=== PATIENT | male | born 1945 | race Hispanic/Latino ===

== ENCOUNTER 2019-10-05 22:40 | Inpatient (IN) | payer OTHER ==
[~2019-10-05] VITALS: Ht 165.1 cm; Wt 72.3 kg
[2019-10-05 23:07] LABS: BASOPHILS % (AUTO) 0.3 % (0.0-5.0); HEMATOCRIT 55.4 % (42-54); LYMPHOCYTES % (AUTO) 4.3 % (21.0-51.0); MEAN CORPUSCULAR HEMOGLOBIN 30.2 pg (27.0-33.0); MEAN CORPUSCULAR HGB CONC 31.8 g/dL (32.0-36.0); NEUTROPHILS % (AUTO) 90.9 % (40.0-77.0); NUCLEATED RED BLOOD CELLS 0.4 % (0.0-0.19); PLATELET COUNT (AUTO) 131 K/uL (130-400); RED BLOOD CELL COUNT(AUTO) 5.83 MIL/uL (4.50-6.20); RED CELL DISTRIBUTION WIDTH 17.6 % (11.0-15.5); WHITE BLOOD COUNT (AUTO) 25.8 K/uL (4.8-10.8)
[2019-10-05 23:19] LABS: ABG BASE EXCESS -12.9 mmol/L (-2.0-3.0); ABG HCO3 12.6 mmol/L (21.0-28.0); ABG OXYGEN SATURATION 95.4 % (95.0-99.0); ABG PCO2 29 mmHg (35-48)
[2019-10-05 23:26] LABS: INR 1.29 (0.85-1.15); PARTIAL THROMBOPLASTIN TIME 23.4 SEC (26.3-35.5); PROTHROMBIN TIME 13.8 SEC (9.6-11.6)
[2019-10-05] MEDS ORDERED: LORAZEPAM 2 MG/ML 1 ML VIAL ONE (23:30)
[2019-10-05] MEDS ORDERED: CEFTRIAXONE SODIUM 1 GM ONE (23:30)
[2019-10-05 23:41] LABS: PLATELET MORPHOLOGY PLT CLUMPS PRESENT
[2019-10-05 23:53] LABS: ALBUMIN 2.6 g/dL (3.5-5.0); BILIRUBIN,TOTAL 0.6 mg/dL (0.2-1.0); CREATININE 3.4 mg/dL (0.5-1.5); TOTAL PROTEIN, SERUM 7.1 g/dL (6.0-8.3)
[2019-10-06 00:19] LABS: POTASSIUM 6.5 mmol/L (3.5-5.1)
[2019-10-06 00:20] LABS: TROPONIN I 1.08 ng/mL (0.00-0.06)
[2019-10-06] MEDS ORDERED: CALCIUM GLUCONATE 1 GM/10 ML VIAL IV ONE (00:33)
[2019-10-06] MEDS ORDERED: INSULIN HUMULIN R 100 UNIT/ML 3ML ONE ×2 (00:36→21:42)
[2019-10-06] MEDS ORDERED: SODIUM CHLORIDE 0.9% 1000ML 1,000 ML IV SCH ×3 (00:50→02:15)
[2019-10-06] MEDS ORDERED: DEXTROSE 5 %-0.45 % NACL 1,000 ML IV PRN (00:50)
[2019-10-06 01:00] LABS: MAGNESIUM 3.9 mg/dL (1.80-2.40); PHOSPHORUS 9.4 mg/dL (2.5-4.9)
[2019-10-06] MEDS ORDERED: ERGOCALCIFEROL (VITAMIN D2) 50,000 UNIT CAPSULE PO ONE (01:00)
[2019-10-06] MEDS: INSULIN HUMULIN R 100 UNIT/ML 3ML IV SCH (01:00)
[2019-10-06] MEDS ORDERED: POTASSIUM CHLORIDE 10MEQ/100ML 100 ML IV PRN (01:00)
[2019-10-06] MEDS ORDERED: ONDANSETRON HCL 4 MG/2 ML VIAL IV PRN (01:15)
[2019-10-06] MEDS: ASPIRIN 300 MG SUPPOSITORY PR SCH (01:15)
[2019-10-06] MEDS ORDERED: NITROGLYCERIN 0.4 MG SL TAB SL PRN (01:15)
[2019-10-06] MEDS ORDERED: DIPHENHYDRAMINE HCL 25 MG CAPSULE PO PRN (01:15)
[2019-10-06] MEDS ORDERED: ALBUTEROL INHALER 90MCG/INH IH PRN (01:15)
[2019-10-06] MEDS ORDERED: ACETAMINOPHEN 325 MG TAB PO PRN ×2 (01:15)
[2019-10-06] MEDS: ALBUTEROL INHALER 90MCG/INH IH SCH ×6 (01:15→21:15)
[2019-10-06 01:52] LABS: CRP QUANTITATIVE 25.4 mg/L (0.00-9.0); MAGNESIUM 3.4 mg/dL (1.80-2.40)
[2019-10-06 02:03] LABS: TROPONIN I 1.16 ng/mL (0.00-0.06)
[2019-10-06] MEDS ORDERED: SODIUM CHLORIDE 0.9% 1000ML 1,000 ML IV ONE ×2 (02:05→06:50)
[2019-10-06] MEDS ORDERED: HEPARIN 25000 UNITS/250 ML D5W 250 ML IV SCH (02:45)
[2019-10-06] MEDS ORDERED: HEPARIN SODIUM 5000UNIT/ML 1ML VIAL ONE (02:48)
[2019-10-06] MEDS ORDERED: ASPIRIN 300 MG SUPPOSITORY PR ONE (02:48)
[2019-10-06] MEDS ORDERED: HEPARIN 25000 UNITS/250 ML D5W 250 ML IV ONE (02:49)
[2019-10-06 03:32] LABS: ABG BASE EXCESS -13.6 mmol/L (-2.0-3.0); ABG HCO3 14.3 mmol/L (21.0-28.0); ABG OXYGEN SATURATION 92.2 % (95.0-99.0); ABG PCO2 40 mmHg (35-48)
[2019-10-06] MEDS: SODIUM BICARB 8.4% 50ML SYRINGE IVP SCH (03:45)
[2019-10-06 04:04] LABS: MEAN CORPUSCULAR HEMOGLOBIN 30.1 pg (27.0-33.0); MEAN CORPUSCULAR HGB CONC 31.5 g/dL (32.0-36.0); MEAN CORPUSCULAR VOLUME 95.6 fL (79-99); NUCLEATED RED BLOOD CELLS 0.2 % (0.0-0.19); PLATELET COUNT (AUTO) 111 K/uL (130-400); RED BLOOD CELL COUNT(AUTO) 5.02 MIL/uL (4.50-6.20); RED CELL DISTRIBUTION WIDTH 16.6 % (11.0-15.5); WHITE BLOOD COUNT (AUTO) 21.4 K/uL (4.8-10.8)
[2019-10-06] MEDS ORDERED: SODIUM BICARB 50MEQ 50ML VIAL ONE ×2 (04:09→15:31)
[2019-10-06 04:42] LABS: INR 1.48 (0.85-1.15); PROTHROMBIN TIME 15.7 SEC (9.6-11.6)
[2019-10-06 04:50] LABS: BAND NEUTROPHILS % (MANUAL) 3 % (0-2); MAN.DIFF COMMENT-IMPRESSION MANUAL DIFFERENTIAL; MONOCYTES % (MANUAL) 1 % (2-9); SEGMENTED NEUTROPHILS % 96 % (40-70)
[2019-10-06 06:11] LABS: PARTIAL THROMBOPLASTIN TIME > 120.0 SEC (26.3-35.5)
[2019-10-06] MEDS ORDERED: PROPOFOL 1000 MG/100 ML 100 ML IV ONE ×2 (07:55→21:40)
[2019-10-06 08:45] LABS: CREATININE 2.7 mg/dL (0.5-1.5); MAGNESIUM 3.3 mg/dL (1.80-2.40); POTASSIUM 5.3 mmol/L (3.5-5.1)
[2019-10-06 08:53] LABS: TROPONIN I 1.21 ng/mL (0.00-0.06)
[2019-10-06 08:57] LABS: ABG BASE EXCESS -12.3 mmol/L (-2.0-3.0); ABG HCO3 17.3 mmol/L (21.0-28.0); ABG OXYGEN SATURATION 99.3 % (95.0-99.0); ABG PCO2 54 mmHg (35-48)
[2019-10-06] MEDS: METHYLPREDNISOLONE SOD SUCC 40MG/ML 1ML IVP SCH ×3 (09:00→21:00)
[2019-10-06] MEDS ORDERED: ENOXAPARIN SODIUM 40 MG/0.4 ML SYRINGE SQ SCH (09:00)
[2019-10-06] MEDS: ASCORBIC ACID 500 MG TAB PO SCH (09:00)
[2019-10-06] MEDS: FAMOTIDINE/PF 20 MG/2 ML VIAL IV SCH (09:00)
[2019-10-06] MEDS ORDERED: HEPARIN SODIUM 5000UNIT/ML 1ML VIAL SQ SCH (09:00)
[2019-10-06] MEDS: ZINC SULFATE 220 CAPSULE PO SCH (09:00)
[2019-10-06 09:05] LABS: ABG BASE EXCESS -12.8 mmol/L (-2.0-3.0); ABG HCO3 16.7 mmol/L (21.0-28.0); ABG OXYGEN SATURATION 98.8 % (95.0-99.0); ABG PCO2 52 mmHg (35-48)
[2019-10-06] MEDS ORDERED: DEXTROSE 5 %-0.45 % NACL 1,000 ML IV ONE (09:16)
[2019-10-06 09:29] LABS: APPEARANCE,URINE Cloudy (CLEAR); BILIRUBIN,URINE Negative (NEGATIVE); COLOR,URINE Yellow (YELLOW); GLUCOSE, URINE (UA) >=1000 mg/dL (NEGATIVE); KETONES,URINE Negative (NEGATIVE); LEUKOCYTE ESTERASE ,URINE Negative (NEGATIVE); NITRATE,URINE Negative (NEGATIVE); OCCULT BLOOD,URINE Small (NEGATIVE); PROTEIN,URINE Trace mg/dL (NEGATIVE); UROBILINOGEN,URINE 0.2 mg/dL (0.2-1.0)
[2019-10-06] MEDS ORDERED: FENTANYL CITRATE PF 50 MCG/1 ML 2ML VIAL ONE (09:59)
[2019-10-06] MEDS ORDERED: DEXTROSE 5%-WATER 1,000 ML IV SCH (10:00)
[2019-10-06] MEDS ORDERED: MIDAZOLAM HCL 1 MG/ML 2ML VIAL ONE (10:01)
[2019-10-06 10:05] LABS: BACTERIA,URINE Few /HPF (None Seen); WBC,URINE None Seen /HPF (0-1)
[2019-10-06 10:06] LABS: SQUAMOUS EPITHELIAL CELL,UR 0-2 /HPF (0-2); URIC ACID CRYSTALS,URINE Few /LPF (None Seen)
[2019-10-06] MEDS: ZOSYN 3.375GM+NS 50ML 50 ML IV SCH ×2 (10:15→21:00)
[2019-10-06] MEDS: ENOXAPARIN SODIUM 80 MG/0.8 ML SQ SCH (11:30)
[2019-10-06] MEDS ORDERED: VECURONIUM BROMIDE 10 MG ML IV SCH (13:45)
[2019-10-06] MEDS ORDERED: NOREPINEPHRINE 4MG/NS 250ML 250 ML IV ONE (14:45)
[2019-10-06 14:46] LABS: ABG BASE EXCESS -10.6 mmol/L (-2.0-3.0); ABG HCO3 20.4 mmol/L (21.0-28.0); ABG OXYGEN SATURATION 93.8 % (95.0-99.0); ABG PCO2 68 mmHg (35-48)
[2019-10-06] MEDS ORDERED: DEXTROSE 5%-WATER 1,000 ML IV ONE (15:32)
[2019-10-06 15:42] LABS: CREATININE 2.8 mg/dL (0.5-1.5); MAGNESIUM 3.2 mg/dL (1.80-2.40)
[2019-10-06] MEDS ORDERED: SODIUM BICARB 8.4% 50ML SYRING 0 MEQ in DEXTROSE 5%-WATER 1,000 ML IV SCH (15:45)
[2019-10-06] MEDS ORDERED: SODIUM BICARB 8.4% 50ML SYRINGE IVP SCH (15:45)
[2019-10-06 15:47] LABS: POTASSIUM 6.5 mmol/L (3.5-5.1)
[2019-10-06 15:48] LABS: TROPONIN I 1.25 ng/mL (0.00-0.06)
[2019-10-06] MEDS ORDERED: SODIUM BICARB 8.4% 50ML SYRING 150 MEQ in DEXTROSE 5%-WATER 1,000 ML IV SCH (16:00)
[2019-10-06] MEDS ORDERED: DEXTROSE 50%-WATER 50 ML DISP.SYRIN IV ONE (16:01)
[2019-10-06 16:19] LABS: ABG BASE EXCESS -7.4 mmol/L (-2.0-3.0); ABG HCO3 22.7 mmol/L (21.0-28.0); ABG OXYGEN SATURATION 93.1 % (95.0-99.0); ABG PCO2 68 mmHg (35-48)
--- NOTE | 2019-10-06 17:30 | NUR ---
CALL TO DAUGHTER GULSHAN FOR DC PLANNING BY BRO WYLIE, MAITE ADVISED TO CALL BACK AT 1500, IN A MEETING CALL TO GULSHAN THOMSON, STATES PATIENT LIVES WITH HER SISTER NATHAN, HE IS INDEPENDENT, DRIVES, DOES NOT OWN ANY DME, NO BP CUFF OR GLUCOMETER OR SHOWER CHAIR- COMPLETELY SELF CARE AND FOLLOWS REGULARLY WITH HIS PCPC , LAST APPOINTMENT 3 WEEKS AGO. KENDELL EVANS TO PROVIDE TRANSPORT ON DISCHARGE CM TO FOLLOW, PATIENT CONDITION GRIM Addendum: 10/06/19 at 2030 by ODELL SORENSON RN CM Amended: Links added.
[2019-10-06 17:43] LABS: ABG BASE EXCESS -5.2 mmol/L (-2.0-3.0); ABG HCO3 23.2 mmol/L (21.0-28.0); ABG OXYGEN SATURATION 97.3 % (95.0-99.0); ABG PCO2 58 mmHg (35-48)
[2019-10-06] MEDS ORDERED: ZOSYN 3.375GM+NS 50ML 50 ML IV ONE (17:46)
[2019-10-06] MEDS: LINEZOLID 600 MG/ISO-OSM 300 ML IV SCH (18:00)
[2019-10-06] MEDS ORDERED: FUROSEMIDE 10 MG/ML 2ML VIAL ONE (18:24)
[2019-10-06] MEDS ORDERED: FUROSEMIDE 10 MG/ML 4ML VIAL ONE (18:25)
[2019-10-06 18:45] LABS: INR 1.12 (0.85-1.15); PARTIAL THROMBOPLASTIN TIME 23.5 SEC (26.3-35.5)
[2019-10-06 19:10] LABS: TROPONIN I 1.07 ng/mL (0.00-0.06)
[2019-10-06] MEDS ORDERED: SODIUM POLYSTYRENE SULFONATE 15 GM/60 ML ML PO SCH (19:30)
[2019-10-06 21:23] LABS: ABG BASE EXCESS -3.2 mmol/L (-2.0-3.0); ABG HCO3 24.3 mmol/L (21.0-28.0); ABG OXYGEN SATURATION 97.7 % (95.0-99.0); ABG PCO2 53 mmHg (35-48)
[2019-10-06 21:26] LABS: ABG BASE EXCESS -4.8 mmol/L (-2.0-3.0); ABG HCO3 21.4 mmol/L (21.0-28.0); ABG OXYGEN SATURATION 98.4 % (95.0-99.0); ABG PCO2 44 mmHg (35-48)
[2019-10-06] MEDS ORDERED: SODIUM CHLORIDE 0.9% 100 ML IV ONE (21:41)
[2019-10-06] MEDS ORDERED: SODIUM CHLORIDE 0.9% IVP SCH (21:45)
[2019-10-06] MEDS ORDERED: GLUCAGON 1MG KIT 1 MG ML IM PRN (21:45)
[2019-10-06] MEDS ORDERED: INSULIN IV SS1 SQ PRN ×2 (21:45)
[2019-10-06] MEDS ORDERED: NOREPINEPHRINE 4MG/NS 250ML 250 ML IV SCH (21:45)
[2019-10-06] MEDS ORDERED: INSULIN LISPRO IVP SCH (21:45)
[2019-10-06] MEDS ORDERED: FUROSEMIDE 10 MG/ML 4ML VIAL IV SCH (22:00)
[2019-10-07] VITALS (14 sets, daily range): BP systolic 102–137; BP diastolic 52–74
[2019-10-07] MEDS ORDERED: ZOSYN 3.375GM+NS 50ML 50 ML IV ONE ×2 (00:31→07:58)
[2019-10-07] MEDS ORDERED: FAMOTIDINE/PF 20 MG/2 ML VIAL IV ONE ×2 (00:31→07:58)
[2019-10-07] MEDS ORDERED: METHYLPREDNISOLONE SOD SUCC 40MG/ML 1ML ONE ×2 (00:32→07:58)
[2019-10-07] MEDS: INSULIN HUMULIN R 100 UNIT/ML 3ML IV SCH (01:00)
[2019-10-07 01:03] LABS: CREATININE 3.2 mg/dL (0.5-1.5); POTASSIUM 5.4 mmol/L (3.5-5.1)
[2019-10-07] MEDS: ASPIRIN 300 MG SUPPOSITORY PR SCH (01:15)
[2019-10-07] MEDS: ALBUTEROL INHALER 90MCG/INH IH SCH ×6 (01:15→21:15)
[2019-10-07] MEDS ORDERED: NOREPINEPHRINE 4MG/NS 250ML 250 ML IV ONE ×2 (01:46→08:52)
[2019-10-07 01:49] LABS: ABG BASE EXCESS -0.7 mmol/L (-2.0-3.0); ABG HCO3 25.1 mmol/L (21.0-28.0); ABG OXYGEN SATURATION 96.9 % (95.0-99.0); ABG PCO2 46 mmHg (35-48)
[2019-10-07] MEDS: SODIUM BICARB 8.4% 50ML SYRINGE IVP SCH (03:45)
[2019-10-07] MEDS ORDERED: PROPOFOL 1000 MG/100 ML 100 ML IV ONE (05:58)
[2019-10-07] MEDS: LINEZOLID 600 MG/ISO-OSM 300 ML IV SCH ×2 (06:00→18:24)
[2019-10-07 07:14] LABS: ABG BASE EXCESS 4.8 mmol/L (-2.0-3.0); ABG HCO3 30.9 mmol/L (21.0-28.0); ABG OXYGEN SATURATION 96.1 % (95.0-99.0); ABG PCO2 51 mmHg (35-48)
[2019-10-07 07:24] LABS: BASOPHILS % (AUTO) 0.2 % (0.0-5.0); EOSINOPHILS % (AUTO) 0.9 % (0.0-8.0); HEMATOCRIT 44.7 % (42-54); LYMPHOCYTES % (AUTO) 3.5 % (21.0-51.0); MEAN CORPUSCULAR HEMOGLOBIN 30.3 pg (27.0-33.0); MEAN CORPUSCULAR HGB CONC 31.5 g/dL (32.0-36.0); MEAN CORPUSCULAR VOLUME 96.1 fL (79-99); MONOCYTES % (AUTO) 1.7 % (3.0-13.0); NEUTROPHILS % (AUTO) 92.8 % (40.0-77.0); NUCLEATED RED BLOOD CELLS 0.6 % (0.0-0.19); PLATELET COUNT (AUTO) 108 K/uL (130-400); RED BLOOD CELL COUNT(AUTO) 4.65 MIL/uL (4.50-6.20); RED CELL DISTRIBUTION WIDTH 17.1 % (11.0-15.5)
[2019-10-07] MEDS ORDERED: ENOXAPARIN SODIUM 80 MG/0.8 ML SQ ONE (07:58)
[2019-10-07 08:06] LABS: ALBUMIN 1.7 g/dL (3.5-5.0); BILIRUBIN,TOTAL 0.5 mg/dL (0.2-1.0); CREATININE 3.1 mg/dL (0.5-1.5); MAGNESIUM 2.7 mg/dL (1.80-2.40); POTASSIUM 5.6 mmol/L (3.5-5.1); TOTAL PROTEIN, SERUM 5.3 g/dL (6.0-8.3)
[2019-10-07] MEDS: METHYLPREDNISOLONE SOD SUCC 40MG/ML 1ML IVP SCH ×3 (09:00→21:48)
[2019-10-07] MEDS: ZINC SULFATE 220 CAPSULE PO SCH (09:00)
[2019-10-07] MEDS: ENOXAPARIN SODIUM 80 MG/0.8 ML SQ SCH (09:00)
[2019-10-07] MEDS: ZOSYN 3.375GM+NS 50ML 50 ML IV SCH ×2 (09:00→21:48)
[2019-10-07] MEDS: ASCORBIC ACID 500 MG TAB PO SCH (09:00)
[2019-10-07] MEDS: FAMOTIDINE/PF 20 MG/2 ML VIAL IV SCH (09:00)
--- NOTE | 2019-10-07 10:41 | NUR ---
ATTEMPTED TO CALL PATIENT'S DAUGHTER CHACE AT [phone] TO DO ADMISSION HISTORY, NO ANSWER AND MAILBOX FULL. PATIENT'S NURSE CLYDE ARORA NOTIFIED.
[2019-10-07] MEDS: INSULIN HUMULIN R 100 UNIT/ML 3ML SQ SCH ×2 (13:20→18:25)
[2019-10-07 16:18] LABS: CREATININE 3.1 mg/dL (0.5-1.5)
--- NOTE | 2019-10-07 17:50 | NUR ---
INITIAL SW spoke with patient's daughter, Abbey Covarrubias, [phone]. Patient lives with daughter, Kelly Ferrer. Patient's spouse 2 weeks ago. Patient has no home services. DME: glucometer (no insulin), BPM. Patient is able to complete ADL's independently and drives. PCP is Dr. Scot Flores. Pharmacy is [facility] on [address] in [place]. DCP is home. Addendum: 10/07/19 at 1753 by GLORIA MILLS SS Amended: Links added.
[2019-10-07] MEDS: PROPOFOL 1000 MG/100 ML 100 ML IV SCH ×2 (18:26→22:39)
--- NOTE | 2019-10-07 20:30 | NUR ---
DR. SOFIA BLACK CALLED AND GIVEN RESULTS OF 2D ECHO AND RECOMMENDATIONS OF CARDIOLOGY OF HEPARIN DRIP. HE WAS GIVEN UPDATE ON VITAL SIGNS AND DRIPS. HE ASKED TO CALL DAUGHTER AND GIVE UPDATE THAT PT HAS A VERY POOR PROGNOSIS AND CHANCE OF SURVIVAL IS VERY LOW. HE ALSO ASKED IF FAMILY IS WILLING TO HAVE TPA ADMINISTERED TO PT. NEW ORDERS RECEIVED AND WILL BE CARRIED OUT.
[2019-10-07] MEDS ORDERED: FENTANYL CITRATE PF 0.05 MG/ML 1,000 MCG in SODIUM CHLORIDE 0.9% 100 ML IVPB SCH (20:45)
[2019-10-07] MEDS ORDERED: MIDAZOLAM 50MG-0.9% NS 50ML 50 ML BAG IV SCH (20:45)
--- NOTE | 2019-10-07 20:50 | NUR ---
DAUGHTER DAUGHTER GULSHAN THOMSON WAS CALLED AND GIVEN UPDATED PER DR. BLACK THAT PTS CHANCE OF SURVIVAL IS VERY LOW WITH OR WITHOUT TPA ADMINISTRATION. SHE WAS ALSO ASKED ABOUT ADMINISTRATION OF TPA AND SHE AGREED. SHE DENIED THAT PT HAD ANY RECENT SURGERY, FALLS OR TRAUMA, NO HISTORY OF CANCER, NO HISTORY OF GI BLEEDING OR ANY OTHER TYPE OF BLEEDING RECENT OR IN PAST. SHE WAS MADE AWARE THAT WITH TPA THERE IS A HEAD BLEED OR BLEEDING FROM ANY OTHER AREAS. SHE VOICED UNDERSTANDING AND GAVE CONSENT FOR TPA ADMINISTRATION.
[2019-10-07] MEDS ORDERED: CEFTRIAXONE SODIUM 1 GM IV SCH (21:00)
[2019-10-07] MEDS ORDERED: AZITHROMYCIN 500MG+NS 250ML 250 ML IV SCH (21:00)
--- NOTE | 2019-10-07 21:05 | NUR ---
DR. SOFIA BLACK NOTIFIED THAT DAUGHTER AGREES WITH TPA. NEW ORDERS RECEIVED FOR TPA TO BE ADMINISTERED TOMORROW DUE TO LOVENOX GIVEN EARLIER AND CHANCE OF BLEEDING WOULD BE INCREASED. ORDERS TO START HEPARIN DRIP RECEIVED PT PENDING PICC LINE PLACEMENT.
[2019-10-07 21:34] LABS: INR 1.03 (0.85-1.15); PARTIAL THROMBOPLASTIN TIME 23.6 SEC (26.3-35.5); PROTHROMBIN TIME 11.1 SEC (9.6-11.6)
[2019-10-07] MEDS: INSULIN GLARGINE 100 UNITS/ML 10 ML VIAL SQ SCH (21:47)
--- NOTE | 2019-10-07 23:00 | NUR ---
PICC LINE PICC LINE NURSE GLORIA AT BEDSIDE FOR PLACEMENT.
[2019-10-07] MEDS: MIDAZOLAM 50MG-0.9% NS 50ML 50 ML IV SCH (23:07)
[2019-10-07] MEDS: FENTANYL 2500MCG+NS 250ML 250 ML IV SCH (23:08)
--- NOTE | 2019-10-07 23:49 | NUR ---
6 FR 3 LUMEN PICC INSERTED TO LEFT BRACHIAL VEIN, USING ASEPTIC TECHNIQUE. (+) VPS INDICATES "PICC TIP IN LOWER 1/3 OF SVC OR AT CAVOATRIAL JUNCTION AND OK TO USE PER PROTOCOL.
[2019-10-08] VITALS (35 sets, daily range): BP systolic 112–157; BP diastolic 31–74
[2019-10-08] MEDS: HEPARIN 25000 UNITS/250 ML D5W 250 ML IV SCH ×2 (00:08→20:36)
--- NOTE | 2019-10-08 00:10 | NUR ---
HEPARIN DRIP HEPARIN DRIP STARTED AT THIS TIME PER PROTOCOL
[2019-10-08] MEDS ORDERED: HEPARIN SODIUM 5000UNIT/ML 1ML VIAL ONE (00:18)
[2019-10-08] MEDS: INSULIN HUMULIN R 100 UNIT/ML 3ML SQ SCH ×5 (00:37→23:29)
[2019-10-08] MEDS: ALBUTEROL INHALER 90MCG/INH IH SCH ×6 (00:44→21:15)
[2019-10-08] MEDS: ASPIRIN 300 MG SUPPOSITORY PR SCH (01:15)
[2019-10-08] MEDS: SODIUM BICARB 8.4% 50ML SYRINGE IVP SCH (01:41)
[2019-10-08] MEDS: NOREPINEPHRINE 4MG/NS 250ML 250 ML IV SCH (02:28)
[2019-10-08] MEDS: MIDAZOLAM 50MG-0.9% NS 50ML 50 ML IV SCH ×3 (04:36→20:08)
[2019-10-08 04:44] LABS: BASOPHILS % (AUTO) 0.1 % (0.0-5.0); HEMATOCRIT 44.3 % (42-54); LYMPHOCYTES % (AUTO) 3.8 % (21.0-51.0); MEAN CORPUSCULAR HEMOGLOBIN 29.8 pg (27.0-33.0); MEAN CORPUSCULAR HGB CONC 30.7 g/dL (32.0-36.0); MEAN CORPUSCULAR VOLUME 96.9 fL (79-99); MONOCYTES % (AUTO) 1.6 % (3.0-13.0); NEUTROPHILS % (AUTO) 93.3 % (40.0-77.0); NUCLEATED RED BLOOD CELLS 0.4 % (0.0-0.19); PLATELET COUNT (AUTO) 91 K/uL (130-400); RED BLOOD CELL COUNT(AUTO) 4.57 MIL/uL (4.50-6.20); WHITE BLOOD COUNT (AUTO) 16.4 K/uL (4.8-10.8)
[2019-10-08 05:20] LABS: ABG BASE EXCESS 1.1 mmol/L (-2.0-3.0); ABG HCO3 25.4 mmol/L (21.0-28.0); ABG OXYGEN SATURATION 89.5 % (95.0-99.0); ABG PCO2 39 mmHg (35-48)
[2019-10-08] MEDS: LINEZOLID 600 MG/ISO-OSM 300 ML IV SCH ×2 (05:26→16:36)
[2019-10-08 06:04] LABS: ALBUMIN 1.5 g/dL (3.5-5.0); BILIRUBIN,TOTAL 0.5 mg/dL (0.2-1.0); CREATININE 3.4 mg/dL (0.5-1.5); TOTAL PROTEIN, SERUM 5.6 g/dL (6.0-8.3)
[2019-10-08 07:41] LABS: PROTHROMBIN TIME 11.8 SEC (9.6-11.6)
[2019-10-08 08:06] LABS: PARTIAL THROMBOPLASTIN TIME > 120.0 SEC (26.3-35.5)
[2019-10-08] MEDS: METHYLPREDNISOLONE SOD SUCC 40MG/ML 1ML IVP SCH ×3 (08:47→19:59)
[2019-10-08] MEDS: FAMOTIDINE/PF 20 MG/2 ML VIAL IV SCH (08:47)
[2019-10-08] MEDS: ZOSYN 3.375GM+NS 50ML 50 ML IV SCH ×2 (08:47→20:11)
[2019-10-08] MEDS: ASCORBIC ACID 500 MG TAB PO SCH (08:49)
[2019-10-08] MEDS: ZINC SULFATE 220 CAPSULE PO SCH (08:49)
[2019-10-08] MEDS: ENOXAPARIN SODIUM 80 MG/0.8 ML SQ SCH (09:00)
[2019-10-08 12:57] LABS: INR 1.03 (0.85-1.15); PARTIAL THROMBOPLASTIN TIME 64.1 SEC (26.3-35.5); PROTHROMBIN TIME 11.1 SEC (9.6-11.6)
[2019-10-08 19:23] LABS: INR 0.99 (0.85-1.15); PROTHROMBIN TIME 10.7 SEC (9.6-11.6)
[2019-10-08] MEDS: INSULIN GLARGINE 100 UNITS/ML 10 ML VIAL SQ SCH (20:00)
[2019-10-08] MEDS: FENTANYL 2500MCG+NS 250ML 250 ML IV SCH (20:08)
[2019-10-09] VITALS (24 sets, daily range): BP systolic 114–153; BP diastolic 43–63
[2019-10-09] MEDS: ASPIRIN 300 MG SUPPOSITORY PR SCH ×2 (01:12→21:08)
[2019-10-09] MEDS: ALBUTEROL INHALER 90MCG/INH IH SCH ×4 (01:12→13:15)
[2019-10-09 04:03] LABS: BASOPHILS % (AUTO) 0.1 % (0.0-5.0); HEMATOCRIT 41.9 % (42-54); LYMPHOCYTES % (AUTO) 2.8 % (21.0-51.0); MEAN CORPUSCULAR HEMOGLOBIN 29.9 pg (27.0-33.0); MEAN CORPUSCULAR HGB CONC 30.8 g/dL (32.0-36.0); MONOCYTES % (AUTO) 1.7 % (3.0-13.0); NEUTROPHILS % (AUTO) 94.2 % (40.0-77.0); NUCLEATED RED BLOOD CELLS 0.1 % (0.0-0.19); PLATELET COUNT (AUTO) 92 K/uL (130-400); RED BLOOD CELL COUNT(AUTO) 4.32 MIL/uL (4.50-6.20); RED CELL DISTRIBUTION WIDTH 16.7 % (11.0-15.5); WHITE BLOOD COUNT (AUTO) 13.7 K/uL (4.8-10.8)
[2019-10-09 04:13] LABS: ABG BASE EXCESS 3.1 mmol/L (-2.0-3.0); ABG HCO3 26.9 mmol/L (21.0-28.0); ABG OXYGEN SATURATION 91.2 % (95.0-99.0); ABG PCO2 38 mmHg (35-48)
[2019-10-09] MEDS: LINEZOLID 600 MG/ISO-OSM 300 ML IV SCH ×2 (04:17→17:14)
[2019-10-09 04:19] LABS: INR 0.96 (0.85-1.15); PARTIAL THROMBOPLASTIN TIME 54.5 SEC (26.3-35.5); PROTHROMBIN TIME 10.4 SEC (9.6-11.6)
[2019-10-09 04:24] LABS: ALBUMIN 1.4 g/dL (3.5-5.0); BILIRUBIN,TOTAL 0.5 mg/dL (0.2-1.0); CREATININE 3.7 mg/dL (0.5-1.5); POTASSIUM 4.3 mmol/L (3.5-5.1); TOTAL PROTEIN, SERUM 5.7 g/dL (6.0-8.3)
[2019-10-09] MEDS: INSULIN HUMULIN R 100 UNIT/ML 3ML SQ SCH ×3 (05:49→17:16)
[2019-10-09 07:35] LABS: CRP QUANTITATIVE 163.4 mg/L (0.00-9.0)
[2019-10-09] MEDS: ENOXAPARIN SODIUM 80 MG/0.8 ML SQ SCH (08:20)
[2019-10-09] MEDS: ZOSYN 3.375GM+NS 50ML 50 ML IV SCH ×2 (08:20→21:07)
[2019-10-09] MEDS: METHYLPREDNISOLONE SOD SUCC 40MG/ML 1ML IVP SCH ×3 (08:20→21:07)
[2019-10-09] MEDS: FAMOTIDINE/PF 20 MG/2 ML VIAL IV SCH (08:20)
[2019-10-09] MEDS: ZINC SULFATE 220 CAPSULE PO SCH (08:20)
[2019-10-09] MEDS: ASCORBIC ACID 500 MG TAB PO SCH (09:37)
[2019-10-09] MEDS ORDERED: LIDOCAINE HCL 1% 20 ML VIAL ONE (09:46)
[2019-10-09] MEDS ORDERED: DEXTROSE 5%-WATER 1,000 ML IV ONE (10:42)
[2019-10-09] MEDS: DEXTROSE 5%-WATER 1,000 ML IV SCH (11:27)
--- NOTE | 2019-10-09 12:18 | NUR ---
RD NOTIFICATION - TUBE FEEDING RECOMMENDATIONS Recommend Vital AF 1.2 initiated at 15mls/hr for 5 hrs. Adv to goal as tolerated by 5ml Q5hrs to 50mls/hr. Recommend flushes 150ml Q4hrs. Attempt to fax to [facility] - No answer. Recommendations faxed to [facility], RN notified. NUTRITION NOTE: Pt positive for COVID-19, Septic shock, CAP, DKA. OGT in place. WBC 13.7, Na 156, Cr 3.7, GFR 17, BG 143, LDH 510, Alb 1.4. Vitamin C, Zinc supplementation in place. Recommend immune support tube feeding formula, Vital AF 1.2. RD to continue to monitor. Please notify as additional nutrition concerns arise. Thank you.
--- NOTE | 2019-10-09 12:30 | NUR ---
Dr. Sanz at bedside for right chest tube insertion. 14 fr chest tube inserted at bedside. pt tolerated well. Placed on-20 cm [id number] as ordered. Cxr completed and reviewed by .
[2019-10-09] MEDS: INSULIN NPH 100 UNIT/ML 3ML SQ SCH (17:14)
[2019-10-09] MEDS: FENTANYL 2500MCG+NS 250ML 250 ML IV SCH (18:56)
[2019-10-09] MEDS ORDERED: ROCURONIUM BROMIDE 10MG/1ML 5ML VL IV ONE (19:00)
[2019-10-09] MEDS: HEPARIN 25000 UNITS/250 ML D5W 250 ML IV SCH (21:40)
[2019-10-10] VITALS (24 sets, daily range): BP systolic 128–171; BP diastolic 47–79
[2019-10-10] MEDS: INSULIN HUMULIN R 100 UNIT/ML 3ML SQ SCH ×5 (00:49→23:43)
[2019-10-10] MEDS: DEXTROSE 5%-WATER 1,000 ML IV SCH ×2 (00:56→07:49)
[2019-10-10] MEDS: MIDAZOLAM 50MG-0.9% NS 50ML 50 ML IV SCH ×2 (00:57→07:48)
[2019-10-10 03:56] LABS: BASOPHILS % (AUTO) 0.1 % (0.0-5.0); HEMATOCRIT 37.2 % (42-54); LYMPHOCYTES % (AUTO) 3.3 % (21.0-51.0); MEAN CORPUSCULAR HEMOGLOBIN 29.8 pg (27.0-33.0); MEAN CORPUSCULAR HGB CONC 30.9 g/dL (32.0-36.0); MEAN CORPUSCULAR VOLUME 96.4 fL (79-99); MONOCYTES % (AUTO) 1.8 % (3.0-13.0); NUCLEATED RED BLOOD CELLS 0.2 % (0.0-0.19); PLATELET COUNT (AUTO) 83 K/uL (130-400); RED BLOOD CELL COUNT(AUTO) 3.86 MIL/uL (4.50-6.20); WHITE BLOOD COUNT (AUTO) 10.7 K/uL (4.8-10.8)
[2019-10-10 04:24] LABS: ALBUMIN 1.1 g/dL (3.5-5.0); BILIRUBIN,TOTAL 0.5 mg/dL (0.2-1.0); CREATININE 3.8 mg/dL (0.5-1.5); CRP QUANTITATIVE 174.3 mg/L (0.00-9.0); MAGNESIUM 3.3 mg/dL (1.80-2.40); PHOSPHORUS 7.3 mg/dL (2.5-4.9); POTASSIUM 4.2 mmol/L (3.5-5.1); TOTAL PROTEIN, SERUM 5.2 g/dL (6.0-8.3); URIC ACID 8.1 mg/dL (2.6-7.2)
[2019-10-10] MEDS: LINEZOLID 600 MG/ISO-OSM 300 ML IV SCH ×2 (06:36→17:04)
[2019-10-10] MEDS: METHYLPREDNISOLONE SOD SUCC 40MG/ML 1ML IVP SCH ×3 (07:48→21:51)
[2019-10-10] MEDS: ZINC SULFATE 220 CAPSULE PO SCH (07:48)
[2019-10-10] MEDS: FAMOTIDINE/PF 20 MG/2 ML VIAL IV SCH (07:48)
[2019-10-10] MEDS: ASCORBIC ACID 500 MG TAB PO SCH (07:48)
[2019-10-10] MEDS: ZOSYN 3.375GM+NS 50ML 50 ML IV SCH ×2 (07:49→21:51)
[2019-10-10] MEDS: INSULIN NPH 100 UNIT/ML 3ML SQ SCH ×2 (07:50→17:01)
[2019-10-10 08:51] LABS: ABG BASE EXCESS -1.5 mmol/L (-2.0-3.0); ABG HCO3 23.7 mmol/L (21.0-28.0); ABG OXYGEN SATURATION 96.6 % (95.0-99.0); ABG PCO2 42 mmHg (35-48)
--- NOTE | 2019-10-10 08:51 | NUR ---
CHART CHECK COMPLETED. Pt IS A 74 Y.O. ADMITTED SECONDARY TO SEPTIC SHOCK, CAP, DKA, PUI, ACUTE HYPOXIC RESPIRATORY FAILURE, ACUTE ENCEPHALOPATHY, KIDNEY FAILURE, AMS, RHABDOMYOLYSIS. Pt HAS A PAST MEDICAL HISTORY SIGNIFICANT FOR DM, HYPERTENSION. Pt CURRENTLY ON TUBE FEEDING. PLEASE REQUEST FORMAL SKILLED SPEECH THERAPY 24 HOURS S/P EXTUBATION. Addendum: 10/10/19 at [address] Amended: Links added.
[2019-10-10] MEDS: FENTANYL 2500MCG+NS 250ML 250 ML IV SCH (13:33)
[2019-10-10] MEDS: LACTULOSE 20 GM/30 ML UDCUP PO SCH (21:51)
[2019-10-10] MEDS: ASPIRIN 300 MG SUPPOSITORY PR SCH (23:44)
[2019-10-11] VITALS (22 sets, daily range): BP systolic 132–163; BP diastolic 41–71
[2019-10-11 03:02] LABS: ABG BASE EXCESS -3.1 mmol/L (-2.0-3.0); ABG HCO3 22.3 mmol/L (21.0-28.0); ABG OXYGEN SATURATION 92.7 % (95.0-99.0); ABG PCO2 42 mmHg (35-48)
[2019-10-11] MEDS: HEPARIN 25000 UNITS/250 ML D5W 250 ML IV SCH (04:07)
[2019-10-11] MEDS: INSULIN HUMULIN R 100 UNIT/ML 3ML SQ SCH ×3 (06:00→17:42)
[2019-10-11] MEDS: LINEZOLID 600 MG/ISO-OSM 300 ML IV SCH ×2 (06:10→17:43)
[2019-10-11] MEDS: MIDAZOLAM 50MG-0.9% NS 50ML 50 ML IV SCH ×2 (07:23→21:12)
[2019-10-11 07:29] LABS: HEMATOCRIT 40.5 % (42-54); MEAN CORPUSCULAR HEMOGLOBIN 29.3 pg (27.0-33.0); MEAN CORPUSCULAR HGB CONC 30.9 g/dL (32.0-36.0); MEAN CORPUSCULAR VOLUME 94.8 fL (79-99); NUCLEATED RED BLOOD CELLS 0.2 % (0.0-0.19); RED BLOOD CELL COUNT(AUTO) 4.27 MIL/uL (4.50-6.20); RED CELL DISTRIBUTION WIDTH 15.2 % (11.0-15.5); WHITE BLOOD COUNT (AUTO) 12.5 K/uL (4.8-10.8)
[2019-10-11 07:47] LABS: ALBUMIN 1.1 g/dL (3.5-5.0); BILIRUBIN,TOTAL 0.5 mg/dL (0.2-1.0); CREATININE 4.6 mg/dL (0.5-1.5); POTASSIUM 4.2 mmol/L (3.5-5.1); TOTAL PROTEIN, SERUM 5.6 g/dL (6.0-8.3)
[2019-10-11] MEDS: ZINC SULFATE 220 CAPSULE PO SCH (07:59)
[2019-10-11] MEDS: METHYLPREDNISOLONE SOD SUCC 40MG/ML 1ML IVP SCH ×2 (07:59→12:37)
[2019-10-11] MEDS: ASCORBIC ACID 500 MG TAB PO SCH (07:59)
[2019-10-11] MEDS: LACTULOSE 20 GM/30 ML UDCUP PO SCH ×2 (07:59→21:00)
[2019-10-11] MEDS: ZOSYN 3.375GM+NS 50ML 50 ML IV SCH ×2 (08:00→21:11)
[2019-10-11] MEDS: INSULIN NPH 100 UNIT/ML 3ML SQ SCH ×2 (08:00→17:42)
[2019-10-11] MEDS: DOCUSATE CALCIUM 240 MG CAP PO SCH (08:00)
[2019-10-11] MEDS: FAMOTIDINE/PF 20 MG/2 ML VIAL IV SCH (08:01)
[2019-10-11 08:09] LABS: PARTIAL THROMBOPLASTIN TIME 47.3 SEC (26.3-35.5)
[2019-10-11 08:25] LABS: CRP QUANTITATIVE 139.4 mg/L (0.00-9.0)
[2019-10-11] MEDS: FENTANYL 2500MCG+NS 250ML 250 ML IV SCH (14:20)
--- NOTE | 2019-10-11 16:26 | NUR ---
PT SEDATION WEANED OFF AT 1500, PT UNABLE TO OPEN EYES OR FOLLOW COMMANDS AT THIS TIME, NO SPONTANEOUS MOVEMENT NOTED, PT COUGHING OCCASIONALLY. LABORED BREATHING NOTED RR 38-39. PT PLACED BACK ON SEDATION. CONTINUE TO MONITOR PT.
[2019-10-11] MEDS: ASPIRIN 300 MG SUPPOSITORY PR SCH (21:13)
[2019-10-12] VITALS (23 sets, daily range): BP systolic 122–192; BP diastolic 49–76
[2019-10-12] MEDS: INSULIN HUMULIN R 100 UNIT/ML 3ML SQ SCH ×4 (00:47→17:46)
[2019-10-12 03:12] LABS: HEMATOCRIT 41.5 % (42-54); MEAN CORPUSCULAR HEMOGLOBIN 29.7 pg (27.0-33.0); MEAN CORPUSCULAR HGB CONC 31.6 g/dL (32.0-36.0); MEAN CORPUSCULAR VOLUME 94.1 fL (79-99); NUCLEATED RED BLOOD CELLS 0.2 % (0.0-0.19); RED BLOOD CELL COUNT(AUTO) 4.41 MIL/uL (4.50-6.20); RED CELL DISTRIBUTION WIDTH 15.6 % (11.0-15.5); WHITE BLOOD COUNT (AUTO) 12.6 K/uL (4.8-10.8)
[2019-10-12 03:28] LABS: ALBUMIN 1.1 g/dL (3.5-5.0); BILIRUBIN,TOTAL 0.5 mg/dL (0.2-1.0); CREATININE 4.5 mg/dL (0.5-1.5); CRP QUANTITATIVE 157.7 mg/L (0.00-9.0); POTASSIUM 4.1 mmol/L (3.5-5.1); TOTAL PROTEIN, SERUM 5.6 g/dL (6.0-8.3)
[2019-10-12 03:39] LABS: ABG BASE EXCESS -3.5 mmol/L (-2.0-3.0); ABG HCO3 21.1 mmol/L (21.0-28.0); ABG OXYGEN SATURATION 93.2 % (95.0-99.0); ABG PCO2 37 mmHg (35-48)
[2019-10-12] MEDS: LINEZOLID 600 MG/ISO-OSM 300 ML IV SCH ×2 (05:42→18:00)
[2019-10-12] MEDS: HEPARIN 25000 UNITS/250 ML D5W 250 ML IV SCH (06:45)
[2019-10-12] MEDS: INSULIN NPH 100 UNIT/ML 3ML SQ SCH ×2 (08:00→17:48)
[2019-10-12] MEDS: LACTULOSE 20 GM/30 ML UDCUP PO SCH ×2 (09:00→20:43)
[2019-10-12] MEDS: DOCUSATE CALCIUM 240 MG CAP PO SCH (09:00)
[2019-10-12] MEDS: ASCORBIC ACID 500 MG TAB PO SCH (09:00)
[2019-10-12] MEDS: METHYLPREDNISOLONE SOD SUCC 40MG/ML 1ML IVP SCH (09:20)
[2019-10-12] MEDS: ZOSYN 3.375GM+NS 50ML 50 ML IV SCH ×2 (09:20→20:43)
[2019-10-12] MEDS: FAMOTIDINE/PF 20 MG/2 ML VIAL IV SCH (09:20)
[2019-10-12] MEDS: ZINC SULFATE 220 CAPSULE PO SCH (09:20)
[2019-10-12] MEDS: MIDAZOLAM 50MG-0.9% NS 50ML 50 ML IV SCH ×2 (09:31→23:11)
[2019-10-12] MEDS: FENTANYL 2500MCG+NS 250ML 250 ML IV SCH (11:54)
[2019-10-12 22:29] LABS: BILIRUBIN,URINE MODERATE (NEGATIVE); GLUCOSE, URINE (UA) NEGATIVE (NEGATIVE); KETONES,URINE 5 mg/dL (NEGATIVE); LEUKOCYTE ESTERASE ,URINE MODERATE (NEGATIVE); NITRATE,URINE POSITIVE (NEGATIVE); OCCULT BLOOD,URINE LARGE (NEGATIVE); PH,URINE 6.5 (5.0-8.0); PROTEIN,URINE 100 mg/dL (NEGATIVE)
[2019-10-12 22:31] LABS: APPEARANCE,URINE TURBID (CLEAR); COLOR,URINE BROWN (YELLOW)
[2019-10-12 22:39] LABS: CHLORIDE,URINE RANDOM 34 mmol/L (110-250); CREATININE,URINE RANDOM 54 mg/dL (30-135); POTASSIUM,URINE RANDOM 29 mmol/L (25-125); SODIUM,URINE RANDOM 30 mmol/l (40-220)
[2019-10-12 22:49] LABS: RBC,URINE Full Field /HPF (0-1)
[2019-10-12 22:50] LABS: URIC ACID CRYSTALS,URINE Few /LPF (None Seen); YEAST,URINE BUDDING Moderate /HPF (None Seen)
[2019-10-12 22:51] LABS: AMORPHOUS SEDIMENT,UR Few /LPF (None Seen); BACTERIA,URINE Few /HPF (None Seen)
[2019-10-13] VITALS (23 sets, daily range): BP systolic 120–166; BP diastolic 35–69
[2019-10-13] MEDS: INSULIN HUMULIN R 100 UNIT/ML 3ML SQ SCH ×4 (00:47→18:03)
[2019-10-13] MEDS: ASPIRIN 300 MG SUPPOSITORY PR SCH (01:15)
[2019-10-13] MEDS: FENTANYL 2500MCG+NS 250ML 250 ML IV SCH ×2 (03:20→20:02)
[2019-10-13] MEDS: LINEZOLID 600 MG/ISO-OSM 300 ML IV SCH ×2 (07:27→17:28)
[2019-10-13] MEDS: LACTULOSE 20 GM/30 ML UDCUP PO SCH ×2 (08:22→20:22)
[2019-10-13] MEDS: ZOSYN 3.375GM+NS 50ML 50 ML IV SCH ×2 (08:22→20:21)
[2019-10-13] MEDS: DOCUSATE CALCIUM 240 MG CAP PO SCH (08:22)
[2019-10-13] MEDS: METHYLPREDNISOLONE SOD SUCC 40MG/ML 1ML IVP SCH (08:22)
[2019-10-13] MEDS: ZINC SULFATE 220 CAPSULE PO SCH (08:22)
[2019-10-13] MEDS: ASCORBIC ACID 500 MG TAB PO SCH (08:22)
[2019-10-13] MEDS: FAMOTIDINE/PF 20 MG/2 ML VIAL IV SCH (08:22)
[2019-10-13] MEDS: INSULIN NPH 100 UNIT/ML 3ML SQ SCH ×2 (09:19→18:02)
[2019-10-13 14:43] LABS: ABG BASE EXCESS -5.4 mmol/L (-2.0-3.0); ABG HCO3 20.6 mmol/L (21.0-28.0); ABG OXYGEN SATURATION 91.4 % (95.0-99.0); ABG PCO2 42 mmHg (35-48)
[2019-10-13] MEDS: HEPARIN 25000 UNITS/250 ML D5W 250 ML IV SCH (15:01)
[2019-10-13] MEDS: MIDAZOLAM 50MG-0.9% NS 50ML 50 ML IV SCH (17:27)
[2019-10-14] VITALS (32 sets, daily range): BP systolic 117–168; BP diastolic 21–76
[2019-10-14] MEDS: INSULIN HUMULIN R 100 UNIT/ML 3ML SQ SCH ×4 (02:02→17:32)
[2019-10-14] MEDS: MIDAZOLAM 50MG-0.9% NS 50ML 50 ML IV SCH ×2 (02:50→09:02)
[2019-10-14] MEDS: LINEZOLID 600 MG/ISO-OSM 300 ML IV SCH (05:35)
[2019-10-14 06:25] LABS: BASOPHILS % (AUTO) 0.2 % (0.0-5.0); EOSINOPHILS % (AUTO) 0.2 % (0.0-8.0); HEMATOCRIT 39.9 % (42-54); LYMPHOCYTES % (AUTO) 4.5 % (21.0-51.0); MEAN CORPUSCULAR HEMOGLOBIN 29.3 pg (27.0-33.0); MEAN CORPUSCULAR HGB CONC 31.1 g/dL (32.0-36.0); MEAN CORPUSCULAR VOLUME 94.3 fL (79-99); MONOCYTES % (AUTO) 1.7 % (3.0-13.0); NEUTROPHILS % (AUTO) 93.1 % (40.0-77.0); PLATELET COUNT (AUTO) 60 K/uL (130-400); RED BLOOD CELL COUNT(AUTO) 4.23 MIL/uL (4.50-6.20); WHITE BLOOD COUNT (AUTO) 10.5 K/uL (4.8-10.8)
[2019-10-14 06:40] LABS: PLATELET MORPHOLOGY COMMENT LARGE PLTS PRESENT
[2019-10-14 07:14] LABS: ALBUMIN 1.1 g/dL (3.5-5.0); BILIRUBIN,TOTAL 0.4 mg/dL (0.2-1.0); CREATININE 5.3 mg/dL (0.5-1.5); PHOSPHORUS 9.5 mg/dL (2.5-4.9); POTASSIUM 4.7 mmol/L (3.5-5.1); TOTAL PROTEIN, SERUM 5.8 g/dL (6.0-8.3)
[2019-10-14 07:26] LABS: ABG BASE EXCESS -4.7 mmol/L (-2.0-3.0); ABG HCO3 21.2 mmol/L (21.0-28.0); ABG OXYGEN SATURATION 93.1 % (95.0-99.0); ABG PCO2 42 mmHg (35-48)
[2019-10-14] MEDS: LACTULOSE 20 GM/30 ML UDCUP PO SCH ×2 (09:00→21:00)
[2019-10-14] MEDS: FAMOTIDINE/PF 20 MG/2 ML VIAL IV SCH (09:01)
[2019-10-14] MEDS: METHYLPREDNISOLONE SOD SUCC 40MG/ML 1ML IVP SCH (09:01)
[2019-10-14] MEDS: ZINC SULFATE 220 CAPSULE PO SCH (09:01)
[2019-10-14] MEDS: ASCORBIC ACID 500 MG TAB PO SCH (09:01)
[2019-10-14] MEDS: ZOSYN 3.375GM+NS 50ML 50 ML IV SCH (09:01)
[2019-10-14] MEDS: FENTANYL 2500MCG+NS 250ML 250 ML IV SCH (09:02)
[2019-10-14] MEDS: INSULIN NPH 100 UNIT/ML 3ML SQ SCH ×2 (09:05→17:33)
[2019-10-14] MEDS: DOCUSATE CALCIUM 240 MG CAP PO SCH (09:27)
[2019-10-14 13:20] LABS: BASOPHILS % (AUTO) 0.1 % (0.0-5.0); EOSINOPHILS % (AUTO) 3.2 % (0.0-8.0); HEMATOCRIT 46.4 % (42-54); LYMPHOCYTES % (AUTO) 4.2 % (21.0-51.0); MEAN CORPUSCULAR HEMOGLOBIN 29.6 pg (27.0-33.0); MEAN CORPUSCULAR HGB CONC 31.3 g/dL (32.0-36.0); MEAN CORPUSCULAR VOLUME 94.7 fL (79-99); MONOCYTES % (AUTO) 1.1 % (3.0-13.0); NEUTROPHILS % (AUTO) 90.8 % (40.0-77.0); PLATELET COUNT (AUTO) 54 K/uL (130-400); RED CELL DISTRIBUTION WIDTH 15.9 % (11.0-15.5); WHITE BLOOD COUNT (AUTO) 9.1 K/uL (4.8-10.8)
[2019-10-14] MEDS: HEPARIN 25000 UNITS/250 ML D5W 250 ML IV SCH (13:20)
[2019-10-14] MEDS ORDERED: PROPOFOL 1000 MG/100 ML IV PRN (13:30)
[2019-10-14] MEDS ORDERED: PHARMACY COMMUNICATION MISC SCH (13:30)
[2019-10-14 13:34] LABS: CREATININE 5.1 mg/dL (0.5-1.5); POTASSIUM 4.4 mmol/L (3.5-5.1)
[2019-10-14] MEDS ORDERED: CEFEPIME HCL 2 GM VIAL IVP SCH (14:15)
[2019-10-14] MEDS ORDERED: MIDAZOLAM HCL IV SCH (15:30)
[2019-10-14] MEDS ORDERED: WATER IV SCH (15:30)
[2019-10-14] MEDS ORDERED: DEXTROSE 5% IV SCH (15:30)
[2019-10-14] MEDS: PROPOFOL 1000 MG/100 ML 100 ML IV SCH (15:48)
[2019-10-14] MEDS: DEXMEDETOMIDINE HCL 400 MCG in SODIUM CHLORIDE 0.9% 100 ML IV SCH (15:49)
[2019-10-14] MEDS ORDERED: COMPOUND NARC IV MISC 1 EACH IVSOLN MISC PRN (16:30)
[2019-10-14 17:50] LABS: BAND NEUTROPHILS % (MANUAL) 2 % (0-2); LYMPHOCYTES % (MANUAL) 4 % (22-44); MONOCYTES % (MANUAL) 2 % (2-9); SEGMENTED NEUTROPHILS % 92 % (40-70)
[2019-10-14 17:52] LABS: MAN.DIFF COMMENT-IMPRESSION MANUAL DIFFERENTIAL
[2019-10-14 17:53] LABS: HEMATOCRIT 36.4 % (42-54); MEAN CORPUSCULAR HEMOGLOBIN 29.8 pg (27.0-33.0); MEAN CORPUSCULAR HGB CONC 31.3 g/dL (32.0-36.0); MEAN CORPUSCULAR VOLUME 95.3 fL (79-99); PLATELET COUNT (AUTO) 58 K/uL (130-400); RED BLOOD CELL COUNT(AUTO) 3.82 MIL/uL (4.50-6.20); RED CELL DISTRIBUTION WIDTH 15.8 % (11.0-15.5); WHITE BLOOD COUNT (AUTO) 9.4 K/uL (4.8-10.8)
[2019-10-15] VITALS (37 sets, daily range): BP systolic 105–171; BP diastolic 25–58
[2019-10-15] MEDS: FENTANYL CITRATE PF 0.05 MG/ML 2,500 MCG in DEXTROSE 5%-WATER 250 ML IVPB SCH ×2 (01:26→18:20)
[2019-10-15] MEDS: INSULIN HUMULIN R 100 UNIT/ML 3ML SQ SCH ×4 (01:33→18:19)
[2019-10-15] MEDS: DEXMEDETOMIDINE HCL 400 MCG in SODIUM CHLORIDE 0.9% 100 ML IV SCH (02:42)
[2019-10-15 05:38] LABS: BASOPHILS % (AUTO) 0.1 % (0.0-5.0); HEMATOCRIT 34.1 % (42-54); LYMPHOCYTES % (AUTO) 6.1 % (21.0-51.0); MEAN CORPUSCULAR HEMOGLOBIN 28.8 pg (27.0-33.0); MEAN CORPUSCULAR HGB CONC 30.5 g/dL (32.0-36.0); MEAN CORPUSCULAR VOLUME 94.5 fL (79-99); MONOCYTES % (AUTO) 1.5 % (3.0-13.0); NEUTROPHILS % (AUTO) 91.7 % (40.0-77.0); PLATELET COUNT (AUTO) 53 K/uL (130-400); RED BLOOD CELL COUNT(AUTO) 3.61 MIL/uL (4.50-6.20); RED CELL DISTRIBUTION WIDTH 15.7 % (11.0-15.5); WHITE BLOOD COUNT (AUTO) 8.4 K/uL (4.8-10.8)
[2019-10-15 05:59] LABS: ALBUMIN 0.9 g/dL (3.5-5.0); BILIRUBIN,TOTAL 0.3 mg/dL (0.2-1.0); CREATININE 5.9 mg/dL (0.5-1.5); CRP QUANTITATIVE 128.2 mg/L (0.00-9.0); POTASSIUM 5.1 mmol/L (3.5-5.1); TOTAL PROTEIN, SERUM 5.2 g/dL (6.0-8.3)
[2019-10-15 07:32] LABS: ABG BASE EXCESS -6.8 mmol/L (-2.0-3.0); ABG HCO3 19.3 mmol/L (21.0-28.0); ABG OXYGEN SATURATION 92.5 % (95.0-99.0); ABG PCO2 41 mmHg (35-48)
[2019-10-15] MEDS: INSULIN NPH 100 UNIT/ML 3ML SQ SCH ×2 (08:00→18:18)
[2019-10-15] MEDS: LACTULOSE 20 GM/30 ML UDCUP PO SCH ×2 (09:00→20:41)
[2019-10-15] MEDS: FAMOTIDINE/PF 20 MG/2 ML VIAL IV SCH (09:00)
[2019-10-15] MEDS: DOCUSATE CALCIUM 240 MG CAP PO SCH (09:00)
[2019-10-15] MEDS: CEFEPIME HCL 2 GM VIAL IVP SCH (09:00)
[2019-10-15] MEDS: HEPARIN 25000 UNITS/250 ML D5W 250 ML IV SCH (10:13)
[2019-10-15] MEDS: ASCORBIC ACID 500 MG TAB PO SCH (11:48)
[2019-10-15] MEDS: ZINC SULFATE 220 CAPSULE PO SCH (11:48)
[2019-10-15] MEDS: DEXAMETHASONE SOD PHOSPHATE 4 MG/ML 1ML VIAL IVP SCH (11:49)
[2019-10-15] MEDS: NOREPINEPHRINE 4MG/NS 250ML 250 ML IV SCH (13:33)
[2019-10-15] MEDS ORDERED: FENTANYL 2500MCG+NS 250ML 250 ML IV ONE (18:15)
[2019-10-16] VITALS (44 sets, daily range): BP systolic 57–197; BP diastolic 30–76
[2019-10-16] MEDS: DEXTROSE 5% IV SCH ×4 (00:53→20:19)
[2019-10-16] MEDS: WATER IV SCH ×4 (00:53→20:19)
[2019-10-16] MEDS: MIDAZOLAM HCL IV SCH ×4 (00:53→20:19)
[2019-10-16] MEDS: INSULIN HUMULIN R 100 UNIT/ML 3ML SQ SCH ×4 (00:53→16:26)
[2019-10-16] MEDS ORDERED: FENTANYL 2500MCG+NS 250ML 250 ML IV ONE ×2 (06:02→20:54)
[2019-10-16 06:12] LABS: BASOPHILS % (AUTO) 0.2 % (0.0-5.0); HEMATOCRIT 34.2 % (42-54); LYMPHOCYTES % (AUTO) 4.2 % (21.0-51.0); MEAN CORPUSCULAR HEMOGLOBIN 29.6 pg (27.0-33.0); MEAN CORPUSCULAR HGB CONC 31.3 g/dL (32.0-36.0); MEAN CORPUSCULAR VOLUME 94.5 fL (79-99); MONOCYTES % (AUTO) 1.5 % (3.0-13.0); NEUTROPHILS % (AUTO) 93.3 % (40.0-77.0); PLATELET COUNT (AUTO) 69 K/uL (130-400); RED BLOOD CELL COUNT(AUTO) 3.62 MIL/uL (4.50-6.20); RED CELL DISTRIBUTION WIDTH 15.5 % (11.0-15.5); WHITE BLOOD COUNT (AUTO) 12.6 K/uL (4.8-10.8)
[2019-10-16 06:20] LABS: INR 0.96 (0.85-1.15); PROTHROMBIN TIME 10.4 SEC (9.6-11.6)
[2019-10-16 07:02] LABS: ALBUMIN 0.9 g/dL (3.5-5.0); BILIRUBIN,TOTAL 0.3 mg/dL (0.2-1.0); CREATININE 7.4 mg/dL (0.5-1.5); CRP QUANTITATIVE 139.2 mg/L (0.00-9.0); TOTAL PROTEIN, SERUM 5.6 g/dL (6.0-8.3)
[2019-10-16] MEDS: DOCUSATE CALCIUM 240 MG CAP PO SCH (07:09)
[2019-10-16] MEDS: LACTULOSE 20 GM/30 ML UDCUP PO SCH ×2 (07:09→20:34)
[2019-10-16] MEDS: INSULIN NPH 100 UNIT/ML 3ML SQ SCH ×2 (07:31→16:24)
[2019-10-16 07:34] LABS: POTASSIUM 6.1 mmol/L (3.5-5.1)
[2019-10-16] MEDS ORDERED: SODIUM BICARB 50MEQ 50ML VIAL IV SCH (08:00)
[2019-10-16] MEDS ORDERED: SODIUM POLYSTYRENE SULFONATE 15 GM/60 ML ML PO SCH ×2 (08:00→08:15)
[2019-10-16] MEDS ORDERED: SODIUM BICARB 8.4% 50ML SYRINGE IVP SCH (08:00)
[2019-10-16] MEDS: DEXAMETHASONE SOD PHOSPHATE 4 MG/ML 1ML VIAL IVP SCH (08:07)
[2019-10-16] MEDS: ZINC SULFATE 220 CAPSULE PO SCH (08:07)
[2019-10-16] MEDS: FAMOTIDINE/PF 20 MG/2 ML VIAL IV SCH (08:07)
[2019-10-16] MEDS: ASCORBIC ACID 500 MG TAB PO SCH (08:07)
[2019-10-16] MEDS: HEPARIN 25000 UNITS/250 ML D5W 250 ML IV SCH (08:27)
[2019-10-16] MEDS: DEXTROSE 50%-WATER 25 GM/50 ML VIAL IV SCH (08:28)
[2019-10-16] MEDS: INSULIN HUMULIN R 100 UNIT/ML 3ML IV SCH (08:29)
[2019-10-16] MEDS: CEFEPIME HCL 2 GM VIAL IVP SCH (08:38)
[2019-10-16 09:59] LABS: ABG BASE EXCESS -7.3 mmol/L (-2.0-3.0); ABG HCO3 17.8 mmol/L (21.0-28.0); ABG OXYGEN SATURATION 86.1 % (95.0-99.0); ABG PCO2 35 mmHg (35-48)
--- NOTE | 2019-10-16 10:20 | NUR ---
RD UPDATE Recommend change tube feeding formula secondary to altered renal labs. Recommend initiate continuous Suplena @15mls/hr. Goal rate 40mls/hr. Recommended flushes: 150mls [id number]. Recommendations faxed to Reginaldo RN notified. RD to continue to monitor. Please notify as additional nutrition concerns arise. Thank you.
[2019-10-16] MEDS ORDERED: HEPARIN SODIUM 5000UNIT/ML 1ML VIAL ONE (22:07)
[2019-10-16 22:58] LABS: ABG BASE EXCESS -10.6 mmol/L (-2.0-3.0); ABG HCO3 15.5 mmol/L (21.0-28.0); ABG PCO2 35 mmHg (35-48)
[2019-10-17] VITALS (24 sets, daily range): BP systolic 117–172; BP diastolic 20–59
[2019-10-17] MEDS: INSULIN HUMULIN R 100 UNIT/ML 3ML SQ SCH ×4 (00:35→18:00)
[2019-10-17] MEDS: DEXTROSE 5% IV SCH ×4 (01:59→19:33)
[2019-10-17] MEDS: WATER IV SCH ×4 (01:59→19:33)
[2019-10-17] MEDS: MIDAZOLAM HCL IV SCH ×4 (01:59→19:33)
[2019-10-17 03:52] LABS: HEMATOCRIT 29.8 % (42-54); MEAN CORPUSCULAR HEMOGLOBIN 29.2 pg (27.0-33.0); MEAN CORPUSCULAR HGB CONC 31.5 g/dL (32.0-36.0); MEAN CORPUSCULAR VOLUME 92.5 fL (79-99); NUCLEATED RED BLOOD CELLS 0.1 % (0.0-0.19); PLATELET COUNT (AUTO) 68 K/uL (130-400); RED BLOOD CELL COUNT(AUTO) 3.22 MIL/uL (4.50-6.20); RED CELL DISTRIBUTION WIDTH 15.8 % (11.0-15.5); WHITE BLOOD COUNT (AUTO) 15.7 K/uL (4.8-10.8)
[2019-10-17 04:09] LABS: ALBUMIN 0.9 g/dL (3.5-5.0); BILIRUBIN,TOTAL 0.4 mg/dL (0.2-1.0); CRP QUANTITATIVE 127.4 mg/L (0.00-9.0); TOTAL PROTEIN, SERUM 5.4 g/dL (6.0-8.3)
[2019-10-17 04:13] LABS: CREATININE 8.2 mg/dL (0.5-1.5); POTASSIUM 6.1 mmol/L (3.5-5.1)
[2019-10-17 04:17] LABS: BAND NEUTROPHILS % (MANUAL) 3 % (0-2); LYMPHOCYTES % (MANUAL) 1 % (22-44); MAN.DIFF COMMENT-IMPRESSION MANUAL DIFFERENTIAL; MONOCYTES % (MANUAL) 3 % (2-9); SEGMENTED NEUTROPHILS % 93 % (40-70)
[2019-10-17] MEDS ORDERED: SODIUM POLYSTYRENE SULFONATE 15 GM/60 ML ML ONE (04:23)
[2019-10-17] MEDS ORDERED: SODIUM BICARB 50MEQ 50ML VIAL ONE (04:25)
[2019-10-17 04:29] LABS: INR 0.99 (0.85-1.15); PARTIAL THROMBOPLASTIN TIME 81.4 SEC (26.3-35.5); PROTHROMBIN TIME 10.7 SEC (9.6-11.6)
[2019-10-17] MEDS ORDERED: INSULIN HUMULIN R 100 UNIT/ML 3ML IV ONE (04:30)
[2019-10-17] MEDS ORDERED: DEXTROSE 50%-WATER 25 GM/50 ML VIAL IV SCH (04:30)
[2019-10-17] MEDS ORDERED: SODIUM BICARB 50MEQ 50ML VIAL IV ONE (04:30)
[2019-10-17] MEDS ORDERED: SODIUM POLYSTYRENE SULFONATE 15 GM/60 ML ML PO SCH (04:30)
[2019-10-17] MEDS: INSULIN HUMULIN R 100 UNIT/ML 3ML IV SCH (04:31)
[2019-10-17] MEDS: DEXTROSE 50%-WATER 50 ML DISP.SYRIN IV PRN (04:32)
[2019-10-17] MEDS: DEXTROSE 50%-WATER 25 GM/50 ML VIAL IV SCH (08:00)
[2019-10-17] MEDS: ZINC SULFATE 220 CAPSULE PO SCH (08:51)
[2019-10-17] MEDS: DEXAMETHASONE SOD PHOSPHATE 4 MG/ML 1ML VIAL IVP SCH (08:51)
[2019-10-17] MEDS: ASCORBIC ACID 500 MG TAB PO SCH (08:51)
[2019-10-17] MEDS: FAMOTIDINE/PF 20 MG/2 ML VIAL IV SCH (08:51)
[2019-10-17] MEDS: HEPARIN 25000 UNITS/250 ML D5W 250 ML IV SCH (08:52)
[2019-10-17] MEDS: INSULIN NPH 100 UNIT/ML 3ML SQ SCH ×2 (08:53→17:00)
[2019-10-17] MEDS: DOCUSATE CALCIUM 240 MG CAP PO SCH (09:00)
[2019-10-17] MEDS: LACTULOSE 20 GM/30 ML UDCUP PO SCH ×2 (09:00→19:35)
[2019-10-17] MEDS: CEFEPIME HCL 2 GM VIAL IVP SCH (10:40)
[2019-10-17 14:28] LABS: ABG BASE EXCESS -7.7 mmol/L (-2.0-3.0); ABG HCO3 17.8 mmol/L (21.0-28.0); ABG OXYGEN SATURATION 96.1 % (95.0-99.0); ABG PCO2 37 mmHg (35-48)
--- NOTE | 2019-10-17 15:00 | NUR ---
potassium level received 6.1. Dr. Sanz notified. n/o at this time. will cont to monitor.
[2019-10-17 18:53] LABS: BASOPHILS % (AUTO) 0.2 % (0.0-5.0); EOSINOPHILS % (AUTO) 0.2 % (0.0-8.0); HEMATOCRIT 26.4 % (42-54); LYMPHOCYTES % (AUTO) 3.6 % (21.0-51.0); MEAN CORPUSCULAR HEMOGLOBIN 29.5 pg (27.0-33.0); MEAN CORPUSCULAR HGB CONC 31.8 g/dL (32.0-36.0); MEAN CORPUSCULAR VOLUME 92.6 fL (79-99); MONOCYTES % (AUTO) 0.9 % (3.0-13.0); NEUTROPHILS % (AUTO) 94.4 % (40.0-77.0); NUCLEATED RED BLOOD CELLS 0.2 % (0.0-0.19); PLATELET COUNT (AUTO) 53 K/uL (130-400); RED BLOOD CELL COUNT(AUTO) 2.85 MIL/uL (4.50-6.20); RED CELL DISTRIBUTION WIDTH 15.9 % (11.0-15.5); WHITE BLOOD COUNT (AUTO) 16.2 K/uL (4.8-10.8)
[2019-10-17] MEDS ORDERED: FENTANYL 2500MCG+NS 250ML 250 ML IV ONE (19:25)
[2019-10-18] VITALS (31 sets, daily range): BP systolic 105–171; BP diastolic 24–90
[2019-10-18 04:08] LABS: HEMATOCRIT 26.3 % (42-54); MEAN CORPUSCULAR HEMOGLOBIN 29.3 pg (27.0-33.0); MEAN CORPUSCULAR HGB CONC 31.2 g/dL (32.0-36.0); MEAN CORPUSCULAR VOLUME 93.9 fL (79-99); NUCLEATED RED BLOOD CELLS 0.3 % (0.0-0.19); PLATELET COUNT (AUTO) 66 K/uL (130-400); RED CELL DISTRIBUTION WIDTH 15.9 % (11.0-15.5); WHITE BLOOD COUNT (AUTO) 19.2 K/uL (4.8-10.8)
[2019-10-18 04:18] LABS: ALBUMIN 0.9 g/dL (3.5-5.0); BILIRUBIN,TOTAL 0.4 mg/dL (0.2-1.0); CRP QUANTITATIVE 123.2 mg/L (0.00-9.0); TOTAL PROTEIN, SERUM 5.4 g/dL (6.0-8.3)
[2019-10-18 04:24] LABS: CREATININE 9.4 mg/dL (0.5-1.5); POTASSIUM 6.6 mmol/L (3.5-5.1)
[2019-10-18 04:35] LABS: BAND NEUTROPHILS % (MANUAL) 2 % (0-2); LYMPHOCYTES % (MANUAL) 6 % (22-44); MAN.DIFF COMMENT-IMPRESSION MANUAL DIFFERENTIAL; MONOCYTES % (MANUAL) 3 % (2-9); PLATELET MORPHOLOGY COMMENT DECREASED; SEGMENTED NEUTROPHILS % 89 % (40-70)
[2019-10-18] MEDS: INSULIN HUMULIN R 100 UNIT/ML 3ML SQ SCH ×3 (05:07→12:00)
[2019-10-18] MEDS ORDERED: DEXTROSE 50%-WATER 25 GM/50 ML VIAL IV SCH (06:45)
[2019-10-18] MEDS ORDERED: SODIUM POLYSTYRENE SULFONATE 15 GM/60 ML ML ONE (06:59)
[2019-10-18] MEDS ORDERED: SODIUM BICARB 50MEQ 50ML VIAL ONE (07:00)
[2019-10-18] MEDS: INSULIN HUMULIN R 100 UNIT/ML 3ML IV SCH (07:04)
[2019-10-18] MEDS: DEXTROSE 50%-WATER 50 ML DISP.SYRIN IV PRN (07:05)
[2019-10-18] MEDS ORDERED: INSULIN HUMULIN R 100 UNIT/ML 3ML IV SCH (07:25)
[2019-10-18] MEDS ORDERED: SODIUM BICARB 50MEQ 50ML VIAL IV SCH (07:26)
[2019-10-18] MEDS ORDERED: SODIUM POLYSTYRENE SULFONATE 15 GM/60 ML ML GT SCH (07:26)
[2019-10-18] MEDS: INSULIN NPH 100 UNIT/ML 3ML SQ SCH (07:53)
[2019-10-18] MEDS: DEXTROSE 50%-WATER 25 GM/50 ML VIAL IV SCH (07:53)
[2019-10-18] MEDS: DOCUSATE CALCIUM 240 MG CAP PO SCH (07:54)
[2019-10-18] MEDS: LACTULOSE 20 GM/30 ML UDCUP PO SCH (07:54)
[2019-10-18 08:01] LABS: ABG BASE EXCESS -4.5 mmol/L (-2.0-3.0); ABG HCO3 20.5 mmol/L (21.0-28.0); ABG OXYGEN SATURATION 84.3 % (95.0-99.0); ABG PCO2 38 mmHg (35-48)
[2019-10-18] MEDS: ZINC SULFATE 220 CAPSULE PO SCH (08:07)
[2019-10-18] MEDS: DEXAMETHASONE SOD PHOSPHATE 4 MG/ML 1ML VIAL IVP SCH (08:07)
[2019-10-18] MEDS: ASCORBIC ACID 500 MG TAB PO SCH (08:07)
[2019-10-18] MEDS: FAMOTIDINE/PF 20 MG/2 ML VIAL IV SCH (08:07)
[2019-10-18] MEDS: CEFEPIME HCL 2 GM VIAL IVP SCH (08:07)
[2019-10-18] MEDS ORDERED: FENTANYL 2500MCG+NS 250ML 250 ML IV ONE (10:35)
[2019-10-18] MEDS: DEXTROSE 5% IV SCH (10:59)
[2019-10-18] MEDS: MIDAZOLAM HCL IV SCH (10:59)
[2019-10-18] MEDS: WATER IV SCH (10:59)
--- NOTE | 2019-10-18 13:20 | NUR ---
SS Referal for comfort care measure SW contacted pt's dtr. Abbey Covarrubias re-order for discussion on comfort care; per dtr. she has not been spoken to by MD on this matter. Pt's dtr. requesting MD to discuss end of life care with her. CM made aware.
[2019-10-18] MEDS ORDERED: HALOPERIDOL LACTATE 5 MG/ML VIAL IV PRN (15:15)
[2019-10-18] MEDS ORDERED: ONDANSETRON HCL 4 MG/2 ML VIAL IVP PRN (15:15)
[2019-10-18] MEDS ORDERED: MORPHINE SULFATE 2 MG/ML 1ML SYG IVP PRN (15:15)
--- NOTE | 2019-10-18 15:30 | NUR ---
THIS NURSE SPOKE W/DAUGHTER GULSHAN ABOUT WITHDRAWING CARE. DAUGHTER GAVE TELEPHONE CONSENT TO WITHDRAWL CARE. ANOTHER RN NYASIA WITNESSED TELEPHONE OK TO WITHDRAW CARE ON PATIENT. RT NOTIFIED.
--- NOTE | 2019-10-18 15:37 | NUR ---
RT AT BEDSIDE TO EXTUBATE PATIENT. ALL DRIPS TURNED OFF PER FAMILIES REQUEST.
--- NOTE | 2019-10-18 17:20 | NUR ---
Documentation completed Completed admission database. Information was given by daughter Abbey Covarrubias
--- NOTE | 2019-10-18 17:34 | NUR ---
[employer] AT BEDSIDE AT 1655 TO PRONOUNCE TIME OF . POST MORTEM CARE COMPLETED AT THIS TIME.
== END 2019-10-18 16:55 | disposition expired | DRG 870 ==
LOC: EDH 22:40 → EDHIP 10-06 00:50 → 2CV 10-07 10:28
PROVIDERS: ADMIT Internal Medicine; ATTEND Internal Medicine
PROC: 0BH18EZ Insertion of Endotracheal Airway into Trachea, Via Natural or Artificial Opening Endoscopic (ICD-10-PCS; principal; 2019-10-07)
PROC: 5A1955Z Respiratory Ventilation, Greater than 96 Consecutive Hours (ICD-10-PCS; 2019-10-07)
PROC: 0W9900Z Drainage of Right Pleural Cavity with Drainage Device, Open Approach (ICD-10-PCS; 2019-10-09)
PROC: 02HV33Z Insertion of Infusion Device into Superior Vena Cava, Percutaneous Approach (ICD-10-PCS; 2019-10-16)
PROC: B548ZZA Ultrasonography of Superior Vena Cava, Guidance (ICD-10-PCS; 2019-10-16)
PROC: 5A1D70Z Performance of Urinary Filtration, Intermittent, Less than 6 Hours Per Day (ICD-10-PCS; 2019-10-16)
DX: A41.9 Sepsis, unspecified organism (principal); R65.21 Severe sepsis with septic shock; J96.01 Acute respiratory failure with hypoxia; E11.10 Type 2 diabetes mellitus with ketoacidosis without coma; I21.4 Non-ST elevation (NSTEMI) myocardial infarction; J96.02 Acute respiratory failure with hypercapnia; J12.89 Other viral pneumonia; U07.1 COVID-19; G93.41 Metabolic encephalopathy; N17.9 Acute kidney failure, unspecified; E87.0 Hyperosmolality and hypernatremia; M62.82 Rhabdomyolysis; E87.2 Acidosis; J93.9 Pneumothorax, unspecified; Z99.11 Dependence on respirator [ventilator] status; Z66 Do not resuscitate; R57.0 Cardiogenic shock; I12.9 Hypertensive chronic kidney disease with stage 1 through stage 4 chronic kidney disease, or unspecified chronic kidney disease; E11.22 Type 2 diabetes mellitus with diabetic chronic kidney disease; N18.9 Chronic kidney disease, unspecified; E87.8 Other disorders of electrolyte and fluid balance, not elsewhere classified; E11.21 Type 2 diabetes mellitus with diabetic nephropathy; E87.5 Hyperkalemia; D69.6 Thrombocytopenia, unspecified; E11.51 Type 2 diabetes mellitus with diabetic peripheral angiopathy without gangrene; I51.3 Intracardiac thrombosis, not elsewhere classified; Z79.4 Long term (current) use of insulin; Z86.19 Personal history of other infectious and parasitic diseases
CPT/HCPCS: 31500; 36415; 36600; 70450; 71045; 74018; 76770; 80048; 80051; 80053; 80061; 81001; 82010; 82435; 82550; 82570; 82728; 82803; 82947; 82948; 83605; 83615; 83735; 83874; 83935; 84100; 84132; 84145; 84295; 84484; 84550; 85018; 85025; 85027; 85378; 85610; 85730; 86140; 86900; 86901; 87040; 87071; 87088; 87205; 87486; 87581; 87633; 87798; 90935; 93005; 93306; 93925; 93970; 94002; 94003; A4330; C1751; C1894; G0378; J0610; J0692; J0696; J1100; J1644; J1650; J1815; J1940; J2020; J2060; J2250; J2543; J2704; J2920; J3010; J3490; J7030; J7042; J7060; J7070; U0003